=== PATIENT | female | born 1980 | race Caucasian/White ===

== ENCOUNTER 2017-10-13 03:29 | Emergency (ER) | payer MEDICAID ==
[~2017-10-13] VITALS: Ht 160 cm; Wt 75.1 kg
[~2017-10-13 03:29] MED LIST: CYCL-394 PO; DEPAKOTE; GABA-341 PO; IBUP-1984 PO; LORA1TAB PO; LURA120T PO; [UNRECOGNIZED DRUG - REMARK]
[2017-10-13] MEDS ORDERED: LORazepam 2 mg/ml vial IV ONE (03:45)
[2017-10-13] MEDS ORDERED: ondansetron/PF 4mg/2ml inj IV ONE (03:45)
[2017-10-13] MEDS ORDERED: normal saline 1000ML IV soln IVB ONE (03:45)
[2017-10-13] MEDS ORDERED: ketorolac tromethamine 15mg/ml inj. IV ONE (03:45)
[2017-10-13 03:51] LABS: URINE HCG POSITIVE (NEG)
[2017-10-13 03:52] LABS: COLOR,URINE YELLOW (Yellow); GLUCOSE, URINE NEGATIVE (Neg); KETONES,URINE NEGATIVE (Neg); LEUKOCYTE ESTERASE ,URINE LARGE (Neg); NITRITES, URINE NEGATIVE (Neg); OCCULT BLOOD,URINE LARGE (Neg); PROTEIN,URINE 30 mg/dl (Neg)
[2017-10-13 03:53] LABS: CLARITY,URINE CLOUDY (Clear); UA COLLECTION TYPE CLN CATCH MIDSTREAM
[2017-10-13 03:58] LABS: WBC,URINE TNTC /HPF (0-4)
[2017-10-13 03:59] LABS: BACTERIA,URINE 3+ /HPF (Neg); RBC,URINE 20-50 /HPF (0-2); SQUAMOUS EPITHELIAL CELL,UR MODERATE /LPF (FEW)
[2017-10-13 04:05] LABS: BASOPHILS # (AUTO) 0.1 X10'3 (0-0.2); BASOPHILS % (AUTO) 0.3 % (0-1); EOSINOPHILS # (AUTO) 0.1 X10'3 (0-0.9); EOSINOPHILS % (AUTO) 0.5 % (0-6); HEMATOCRIT 32.8 % (35.0-45.0); HEMOGLOBIN 11.6 g/dl (12.0-16.0); LYMPHOCYTES # (AUTO) 1.3 X10'3 (1.1-4.8); LYMPHOCYTES % (AUTO) 7.2 % (21-51); MEAN CORPUSCULAR HEMOGLOBIN 32.1 PG (27.0-31.0); MEAN CORPUSCULAR HGB CONC 35.4 % (33.0-36.5); MEAN CORPUSCULAR VOLUME 90.6 FL (78-98); MEAN PLATELET VOLUME 7.7 FL (7.4-10.4); MONOCYTES # (AUTO) 1.2 X10'3 (0-0.9); MONOCYTES % (AUTO) 6.5 % (2-12); NEUTROPHILS # (AUTO) 15.5 X10'3 (1.8-7.7); NEUTROPHILS % (AUTO) 85.5 % (42-75); PLATELET COUNT 229 X10'3 (140-440); RED BLOOD COUNT 3.63 X10'6 (4.20-5.60); RED CELL DISTRIBUTION WIDTH 12.7 % (11.5-14.5); WHITE BLOOD COUNT 18.2 X10'3 (4.5-11.0)
[2017-10-13] MEDS ORDERED: acetaminophen 325mg tablet PO ONE (04:10)
[2017-10-13] MEDS ORDERED: CefTRIAXone/D5W-Rocephin 1gm 50 ML IV ONE (04:10)
[2017-10-13 04:22] LABS: INR 0.9 INR; PARTIAL THROMBOPLASTIN TIME 29 SECONDS (22-32); PROTHROMBIN TIME 9.6 SECONDS (9.0-12.0)
[2017-10-13 04:25] LABS: ALANINE AMINOTRANSFERASE 16 U/L (12-78); ALBUMIN 2.2 G/DL (3.4-5.0); ALBUMIN/GLOBULIN RATIO 0.6 (1.1-1.5); ALKALINE PHOSPHATASE 104 IU/L (46-116); ANION GAP 11 (8-16); ASPARTATE AMINO TRANSFERASE 12 U/L (10-37); BILIRUBIN,TOTAL 0.5 MG/DL (0.1-1.0); BLOOD UREA NITROGEN 9 MG/DL (7-18); CALCIUM 8.1 MG/DL (8.5-10.1); CHLORIDE 100 MMOL/L (99-107); GLUCOSE 122 MG/DL (70-104); LIPASE 99 U/L (73-393); SODIUM 133 MMOL/L (135-145); TOTAL PROTEIN 6.2 G/DL (6.4-8.2); eGFR 62 ML/MIN
[2017-10-13 04:27] LABS: POTASSIUM 2.9 MMOL/L (3.5-5.1)
[2017-10-13 04:56] VITALS: BP 99/53
[2017-10-13 05:05] LABS: BETA HCG,QUANTITATIVE 11508 mIU/ml
[2017-10-13 05:24] LABS: TOTAL CELLS COUNTED 100
[2017-10-13 05:25] LABS: PLATELET ESTIMATE NORMAL
== END 2017-10-13 04:57 | disposition left against medical advice (07) ==
LOC: ER 03:29
DX: O23.00 Infections of kidney in pregnancy, unspecified trimester (principal); Z3A.00 Weeks of gestation of pregnancy not specified; Z88.6 Allergy status to analgesic agent; Z88.0 Allergy status to penicillin; Z88.8 Allergy status to other drugs, medicaments and biological substances
CPT/HCPCS: 36415; 80053; 81001; 81025; 83690; 84702; 85025; 85610; 85730; 87077; 87088; 87186; 96365; 99284; J0696; J1885; J2060; J2405; J7030

== ENCOUNTER → 2018-01-31 | Emergency (ER) | payer MEDICAID ==
[~2018-01-31] VITALS: Ht 165.1 cm; Wt 81.8 kg
== END | disposition short-term general hospital (02) ==
LOC: ER 00:19
DX: O62.9 Abnormality of forces of labor, unspecified (principal); F15.10 Other stimulant abuse, uncomplicated; F17.200 Nicotine dependence, unspecified, uncomplicated; Z90.49 Acquired absence of other specified parts of digestive tract; Z88.0 Allergy status to penicillin; Z88.5 Allergy status to narcotic agent; Z79.899 Other long term (current) drug therapy; Z3A.00 Weeks of gestation of pregnancy not specified
CPT/HCPCS: 99285; J7030

== ENCOUNTER 2018-03-20 13:08 | Emergency (ER) | payer MEDICAID | END 2018-03-20 14:19 | disposition left against medical advice (07) | LOC: ER 13:08 | DX: T14.8XXA Other injury of unspecified body region, initial encounter (principal); Z53.21 Procedure and treatment not carried out due to patient leaving prior to being seen by health care provider; W57.XXXA Bitten or stung by nonvenomous insect and other nonvenomous arthropods, initial encounter; Y93.89 Activity, other specified; Y92.89 Other specified places as the place of occurrence of the external cause; Y99.2 Volunteer activity ==

== ENCOUNTER 2018-06-09 03:55 | Emergency (ER) | payer MEDICAID ==
[~2018-06-09] VITALS: Ht 160 cm; Wt 66.0 kg
[2018-06-09 04:01] VITALS: BP 85/52
[2018-06-09 04:22] LABS: URINE HCG NEGATIVE (NEG)
[2018-06-09 04:34] LABS: CLARITY,URINE SLIGHTLY CLOUDY (Clear); COLOR,URINE YELLOW (Yellow); GLUCOSE, URINE NEGATIVE (Neg); KETONES,URINE NEGATIVE (Neg); LEUKOCYTE ESTERASE ,URINE SMALL (Neg); NITRITES, URINE POSITIVE (Neg); OCCULT BLOOD,URINE NEGATIVE (Neg); PH,URINE 6.5 (4.8-8.0); PROTEIN,URINE NEGATIVE (Neg); UROBILINOGEN,URINE 0.2 E.U/dL (0.2-1.0)
[2018-06-09 04:39] LABS: UA COLLECTION TYPE CLN CATCH MIDSTREAM
[2018-06-09 04:42] LABS: BACTERIA,URINE 4+ /HPF (Neg); RBC,URINE NONE SEEN /HPF (0-2)
[2018-06-09 04:43] LABS: SQUAMOUS EPITHELIAL CELL,UR FEW /LPF (FEW)
[2018-06-09 04:44] LABS: TRICHOMONAS,URINE FEW /HPF (NEGATIVE)
[2018-06-09 04:57] LABS: URINE AMPHETAMINE SCREEN POSITIVE (Neg); URINE BARBITUATE SCREEN NEGATIVE (Neg); URINE BENZODIAZEPINES SCREEN NEGATIVE (Neg); URINE CANNABINOID SCREEN NEGATIVE (Neg); URINE COCAINE SCREEN NEGATIVE (Neg); URINE METHADONE SCREEN NEGATIVE (Neg); URINE OPIATE SCREEN NEGATIVE (Neg); URINE PHENCYCLIDINE SCREEN NEGATIVE (Neg)
== END 2018-06-09 05:27 | disposition left against medical advice (07) ==
LOC: ER 03:56
DX: N39.0 Urinary tract infection, site not specified (principal); I95.9 Hypotension, unspecified; F15.90 Other stimulant use, unspecified, uncomplicated; Z90.49 Acquired absence of other specified parts of digestive tract; Z88.0 Allergy status to penicillin; Z88.5 Allergy status to narcotic agent; Z88.8 Allergy status to other drugs, medicaments and biological substances; Z79.899 Other long term (current) drug therapy
CPT/HCPCS: 80305; 81001; 81025; 87077; 87088; 87186; 99284

== ENCOUNTER 2018-11-01 02:19 | Emergency (ER) | payer MEDICAID ==
[~2018-11-01] VITALS: Ht 160 cm; Wt 64.3 kg
[2018-11-01 02:27] VITALS: BP 123/94
== END 2018-11-01 06:09 | disposition left against medical advice (07) ==
LOC: ER 02:19
DX: K08.89 Other specified disorders of teeth and supporting structures (principal); Z53.21 Procedure and treatment not carried out due to patient leaving prior to being seen by health care provider

== ENCOUNTER 2020-08-21 12:41 | Emergency (ER) | payer MEDICAID ==
[~2020-08-21] VITALS: Ht 160 cm; Wt 56.8 kg
[2020-08-21] MEDS ORDERED: LIDOcaine 1% w/epiNEPHrine 1:200,000 30ml vial IJ ONE (13:15)
[2020-08-21] MEDS ORDERED: HYDROcodone/acetaminophen 10/325mg tab PO STA (13:15)
[2020-08-21] MEDS ORDERED: TETanus/Pertussis (Acell)/Diphther VAC/PF (Tdap-Adult) 0.5ml syringe IMVAC ONE (13:15)
--- NOTE | 2020-08-21 14:15 | NUR ---
SPOKE WITH PA ABOUT ORDERING ADDITIONAL PAIN MEDICATIONS FOR PT SHE IS SO PAINFUL THAT IT IS DIFFICULT TO CLEAN WOUNDS. PT CANNOT TOLERATE EVEN SIMPLE IRRIGATION.
[2020-08-21] MEDS ORDERED: cefazolin/dext.iso 2gm/100ml 100 ML IV ONE (14:40)
[2020-08-21] MEDS ORDERED: ceFAZolin 2gm in dextrose, iso 50 ML IV ONE (14:41)
[2020-08-21] MEDS ORDERED: LORazepam 2 mg/ml vial IV ONE (15:20)
[2020-08-21 15:30] LABS: BASOPHILS % (AUTO) 0.2 % (0-1); EOSINOPHILS # (AUTO) 0.1 X10'3 (0-0.9); EOSINOPHILS % (AUTO) 0.4 % (0-6); HEMATOCRIT 41.2 % (35.0-45.0); HEMOGLOBIN 13.7 g/dl (12.0-16.0); LYMPHOCYTES # (AUTO) 1.9 X10'3 (1.1-4.8); LYMPHOCYTES % (AUTO) 9.4 % (21-51); MEAN CORPUSCULAR HEMOGLOBIN 30.7 PG (27.0-31.0); MEAN CORPUSCULAR HGB CONC 33.3 g/dL (33.0-36.5); MEAN CORPUSCULAR VOLUME 92.1 FL (78-98); MEAN PLATELET VOLUME 8.3 FL (7.4-10.4); MONOCYTES # (AUTO) 1.3 X10'3 (0-0.9); MONOCYTES % (AUTO) 6.6 % (2-12); NEUTROPHILS # (AUTO) 16.8 X10'3 (1.8-7.7); NEUTROPHILS % (AUTO) 83.4 % (42-75); PLATELET COUNT 352 X10'3 (140-440); RED BLOOD COUNT 4.48 X10'6 (4.20-5.60); RED CELL DISTRIBUTION WIDTH 12.8 % (11.5-14.5); WHITE BLOOD COUNT 20.1 X10'3 (4.5-11.0)
[2020-08-21 15:46] LABS: ALANINE AMINOTRANSFERASE 22 U/L (12-78); ALBUMIN 4.1 G/DL (3.4-5.0); ALBUMIN/GLOBULIN RATIO 1.1 (1.1-1.5); ALKALINE PHOSPHATASE 83 IU/L (46-116); ANION GAP 9 (8-16); ASPARTATE AMINO TRANSFERASE 23 U/L (10-37); BILIRUBIN,TOTAL 0.4 MG/DL (0.1-1.0); BLOOD UREA NITROGEN 13 MG/DL (7-18); BUN/CREATININE RATIO 15.3 (6.6-38.0); CHLORIDE 105 MMOL/L (99-107); CREATININE 0.85 MG/DL (0.40-0.90); GLUCOSE 107 MG/DL (70-104); POTASSIUM 4.8 MMOL/L (3.5-5.1); SODIUM 140 MMOL/L (135-145); TOTAL CARBON DIOXIDE 26.5 MMOL/L (24-32); TOTAL PROTEIN 7.7 G/DL (6.4-8.2); eGFR 74 ML/MIN
[2020-08-21 16:17] LABS: PLATELET ESTIMATE NORMAL; TOTAL CELLS COUNTED 100
[2020-08-21] MEDS ORDERED: ketorolac trometh. 30mg/ml inj. IV ONE (17:15)
[2020-08-21] MEDS ORDERED: rabies immune globulin/PF 150 unit/ml inj IMVAC ONE (17:25)
[2020-08-21] MEDS ORDERED: HYDROmorphone 1 mg/ml syringe IV ONE (17:25)
[2020-08-21] MEDS ORDERED: rabies vaccine (PCEC)/PF 2.5 unit kit IMVAC ONE (17:25)
--- NOTE | 2020-08-21 17:32 | NUR ---
YULIYA LANDON [phone]
[2020-08-21] MEDS ORDERED: magnesium 4gm in 100ml NS 100 ML IV PRN (17:35)
[2020-08-21] MEDS ORDERED: normal saline 1000ml 1,000 ML IV SCH (17:35)
[2020-08-21] MEDS ORDERED: acetaminophen 650mg rectal suppository RC PRN (17:35)
[2020-08-21] MEDS ORDERED: LORazepam 0.5 MG tablet PO PRN (17:35)
[2020-08-21] MEDS ORDERED: potassium Cl 20 mEq SR tablet PO PRN ×2 (17:35)
[2020-08-21] MEDS ORDERED: ondansetron/PF 4mg/2ml inj IV PRN (17:35)
[2020-08-21] MEDS ORDERED: magnesium Cl slow-release 64mg tablet PO PRN (17:35)
[2020-08-21] MEDS ORDERED: LORazepam 2 mg/ml vial IV PRN (17:35)
[2020-08-21] MEDS ORDERED: magnesium 2GM in 50ml NS 50 ML IV PRN (17:35)
[2020-08-21] MEDS ORDERED: mag hydrox/Alum hydrox/simeth 30ml oral suspension PO PRN (17:35)
[2020-08-21] MEDS ORDERED: bisacodyl 10mg suppository rectal RC PRN (17:35)
[2020-08-21] MEDS ORDERED: HYDROcodone/acetaminophen 5mg/325mg tablet PO PRN (17:35)
[2020-08-21] MEDS ORDERED: potassium Cl 40MEQ/1/2NS 520ml 520 ML IV PRN ×2 (17:35)
[2020-08-21] MEDS ORDERED: acetaminophen 325mg tablet PO PRN ×2 (17:35)
[2020-08-21] MEDS ORDERED: magnesium hydroxide 30ml (MOM) UD suspension PO PRN (17:35)
[2020-08-21] MEDS ORDERED: nicotine 14mg patch - 24hr TD SCH (17:35)
[2020-08-21] MEDS ORDERED: HYDROcodone/acetaminophen 10/325mg tab PO PRN (17:35)
[2020-08-21] MEDS ORDERED: HYDROmorphone inj. 0.5 MG/0.5 ML DISP.SYRIN IV PRN (17:35)
--- NOTE | 2020-08-21 17:45 | NUR ---
GENTLE IRRIGATION TO BL ARMS. CAP REFILL WNL TO Brock RICARDO.
[2020-08-21] MEDS ORDERED: morphine 4 MG/ML inj SYRINge IV ONE (17:50)
--- NOTE | 2020-08-21 18:29 | NUR ---
PT REFUSING RABIES VACCINE, PA NOTIFIED, PRIMARY RN AWARE
--- NOTE | 2020-08-21 18:29 | NUR ---
KWAKU Lawson in to discuss administration of rabies vaccine with patient. Patient adamantly refused vaccine. Risk of jerrell rabies without vaccine explained to patient and the risks of not taking the vaccine up to and including is explained to patient who still refused. Witnessed by this RN and RN Aminah Millard.
--- NOTE | 2020-08-21 18:38 | NUR ---
Patient was brought over urgently from [facility] at about 1800 for rabies administration with morphine and zofran to be given ahead of vaccines; morphine and zofran drawn up as ordered but now patient is adamently refusing the vaccine for PA Lawson witnessed by RNs Yuridia and Freeman. Medication wasted.
--- NOTE | 2020-08-21 18:42 | NUR ---
Pt is refusing to allow lab to draw additional blood for 2nd cultures and lactic after this rn confirmed with Vincenzo, in the lab, that they were still needed. Primary RN Katarina notified and aware.
--- NOTE | 2020-08-21 18:49 | NUR ---
Pt resting stating she refuses blood cultures being drawn, stating " I have been in pain all day and I don't want to have anyone else stick me and cause any pain." Pt is also refusing rabies vaccination.
[2020-08-21 18:52] VITALS: BP 116/59
--- NOTE | 2020-08-21 19:46 | NUR ---
received report from ER. pt awaiting OR - Dr. bethea not in house and OR is full at the moment. will come to floor and await sx here.
[2020-08-21] MEDS ORDERED: K and/or MAG REPLACEMENT MC SCH (20:00)
--- NOTE | 2020-08-21 20:07 | NUR ---
Called report to nurse upstairs in Surgical Unit. Upon walking into patient room to ready her for transfer up to room on floor pt asked if she could have a cigarrette. Pt offered the nicotine patch that is ordered. Pt refused. Pt advised that she will be going to surgery and told her wounds require her to stay in the hospital. Pt became upset insisting she must go outside and smoke. Pt advised that she needs to stay in the hospital or we will need to remove the IV. Pt verbalized understanding of risks of leaving the hospital regarding infection. Pt refused any help from staff, yelling "I am leaving and having a ciagarrette, I don't use the patch, I smoke the cigarrettes. I'm leaving." Pt IV removed and pt refused to take her belongings. Pt wound undressed, as we were waiting for OR to clean and repair dog bite. Pt left unit ambulatory, refusing to answer questions regarding Alert and Oriented status. [employer] called regarding pt in hospital gown outside.
[2020-08-21] MEDS ORDERED: temazepam 15mg capsule PO PRN (21:00)
--- NOTE | 2020-08-21 22:00 | NUR ---
mophine shown as pulled from [employer] but the MAR doesn't reflect that it was given. Contacted KARLOS Burr at home for clarification. She states she pulled the medication, her orinetee skyla up and scanned the medication but then the provider requested that it be held. Aminah and KARLOS Groves then wasted the medication but it was never changed to "non-admin" on the NOV. Addendum: 08/21/20 at 2231 by ANDRA chart note should reflect time of 1999
[2020-08-22] MEDS ORDERED: ceFAZolin/D5W- 1GM premix 50 ML IV SCH
== END 2020-08-21 23:01 | disposition left against medical advice (07) ==
LOC: ER 12:42 → ED HOLD 17:31 → UNDOADMIN 17:31 → UNDODISIN 20:00
DX: S52.602B Unspecified fracture of lower end of left ulna, initial encounter for open fracture type I or II (principal); S62.397B Other fracture of fifth metacarpal bone, left hand, initial encounter for open fracture; Z20.828 Contact with and (suspected) exposure to other viral communicable diseases; Z20.3 Contact with and (suspected) exposure to rabies; W54.0XXA Bitten by dog, initial encounter; Y93.89 Activity, other specified; Y92.89 Other specified places as the place of occurrence of the external cause; Y99.8 Other external cause status
CPT/HCPCS: 36415; 73090; 73120; 80053; 83605; 85007; 85025; 87040; 87635; 90471; 90715; 96361; 96365; 96375; 99285; J1170; J1885; J2060; J7030; 96374; G0378